=== PATIENT | male | born 1955 | race Caucasian/White ===

== ENCOUNTER 2023-01-08 11:05 | Outpatient (RCR) | payer OTHER, SELFPAY | END 2023-02-19 10:35 | disposition home or self-care (01) | PROVIDERS: PCP Physician Assistant; Visit Provider Physician Assistant | DX: M17.9 Osteoarthritis of knee, unspecified (principal); M25.562 Pain in left knee; M25.662 Stiffness of left knee, not elsewhere classified; Z74.09 Other reduced mobility; Z51.89 Encounter for other specified aftercare | CPT/HCPCS: 97161; 97535 ==

== ENCOUNTER 2023-01-20 08:56 | Day surgery (SDC) | payer OTHER, SELFPAY ==
[2023-01-20] VITALS (23 sets, daily range): BP systolic 97–154; BP diastolic 66–96; PULSE 54–99; RESP 16–18; TEMP 35.4–36.6; O2SAT 95–99; BMI 36.7
[2023-01-20] MEDS: ACETAMINOPHEN 500 MG TABLET 1000 MG PO ×3 (09:08→23:16)
[2023-01-20] MEDS: CELECOXIB 200 MG CAPSULE PO (09:08)
[2023-01-20] MEDS: OXYCODONE (CR) 10 MG TAB.ER.12H PO (09:08)
[2023-01-20] MEDS: LACTATED RINGERS 1000 ML 1,000 ML 100 ML IV (09:10)
[2023-01-20] MEDS: SODIUM CHLORIDE 0.9 % (FLUSH) 10 ML SYRINGE IVF (09:22)
[2023-01-20] MEDS: fentaNYL 100 MCG/2 ML inj IVP (10:49)
[2023-01-20] MEDS: MIDAZOLAM HCL 1 MG/ML inj IVP (10:49)
--- NOTE | 2023-01-20 10:57 | W.PM.NB ---
Nerve Block Nerve Block Time Seen by Provider: 10:53 Date Seen: 01/20/23 Type of block requested by surgeon for post-operative analgesia: adductor canal Side: left Time out performed: Yes Verification of patient name: Yes Verification of date of : Yes Site marking: site marked Name of person performing procedure: Gavin Continuous monitoring Was continuous monitoring of O2 sat, B/P, emc storage architect, recorded every 15 minutes?: Yes Procedure Checklist: sterile prep, needles and gloves Ultrasound guided. Images saved: Yes Medications given in 5ml increments after negative aspiration: Ropivicaine %: 0.5 mL: 20 Needle gauge: 20 Decadron (mg): 10 Precedex (mcg): 25 Patient tolerated procedure well: Yes Additional comments: Needle noted adjacent to nerve Block Charges Block Charge (with Pro Fee): Femoral Nerve Use of Ultrasound Machine for Block: Yes- US Guidance/pain block
--- NOTE | 2023-01-20 10:58 | P.NB_ITS ---
Nerve Block Nerve Block Time Seen by Provider: 10:53 Date Seen: 01/20/23 Type of block requested by surgeon for post-operative analgesia: geniculars Side: left Time out performed: Yes Verification of patient name: Yes Verification of date of : Yes Site marking: site marked Name of person performing procedure: Gavin Continuous monitoring Was continuous monitoring of O2 sat, B/P, [employer] plans intelligence officer chief, recorded every 15 minutes?: Yes Procedure Checklist: sterile prep, needles and gloves Medications given in 5ml increments after negative aspiration: Ropivicaine %: 0.5 mL: 9 Needle gauge: 25 Patient tolerated procedure well: Yes Block Charges Block Charge (with Pro Fee): Genicular Nerve Block Use of Ultrasound Machine for Block: No
--- NOTE | 2023-01-20 10:58 | W.ANESCHARGE ---
Anesthesia Charges Start Date/Time Anesthesia Start Date: 01/20/23 Anesthesia Start Time: 11:45 Stop Date/Time Anesthesia Stop Date: 01/20/23 Anesthesia Stop Time: 14:36
--- NOTE | 2023-01-20 11:08 | SUR.PREOP ---
TIME?OUT:?1048 PT/Aurora Jolly RN/Dr. Gavin MDA?VERIFICATION?OF?SURGICAL?SITE left knee,?PROCEDURE,?AND?CONSENT OBTAINED?PRIOR?TO?INVASIVE?PROCEDURE.
--- NOTE | 2023-01-20 13:30 | CRLHL7_ITS ---
For Patients: As a result of the Cures Act, medical imaging exams and procedure reports are released immediately into your electronic medical record. You may view this report before your referring provider. If you have questions, please contact your health care provider. Indication: Postoperative Technique: Two views Comparison: None Findings/Impression: The patient is status post left total knee replacement. No evidence of periprosthetic fracture. Alignment is near anatomic. Subcutaneous and intra-articular air consistent with recent surgery. Dictated by Ta Eugene MD @ 01/20/2023 3:42:39 PM (Electronically Signed)
--- NOTE | 2023-01-20 13:32 | P.ORPRC_ITS ---
Procedure Note Date of procedure: 01/20/23 Procedure: PREOPERATIVE DIAGNOSIS: Left knee osteoarthritis POSTOPERATIVE DIAGNOSIS: Left knee osteoarthritis NAME OF OPERATION: Left total knee arthroplasty SURGEON: Ravinder Hagan MD TRAFFIC COURT REFEREE: Shandra Hou PA-C ANESTHESIA: Spinal ESTIMATED BLOOD LOSS: 0 mL COMPLICATIONS: None SPECIMENS: None DRAINS: None PREOPERATIVE ANTIBIOTICS: Ancef 3 grams IMPLANTS: 1. J&J Attune # 9 posterior stabilized femur 2. # 8 fixed-bearing tibia, 14 mm x 50 mm cemented stem 3. # 9 posterior stabilized, 5 mm fixed-bearing polyethylene 4. 41 patella INDICATIONS: The patient is a 67-year-old with a longstanding history of severe, unrelenting left knee pain secondary to end-stage (grade IV) left knee osteoarthritis. Despite appropriate nonoperative management, including activity modification, anti-inflammatories, [id number] pain medication, bracing, physical therapy, and injections they continue to have pain and disability. Operative intervention was offered. The risks, benefits and expected outcomes were discussed in detail. These included but were not limited to: Infection, bleeding, injury to blood vessel or nerve, venous thromboembolism. All questions were answered to their satisfaction. Use of an insurance legal assistant was necessary throughout the case for patient positioning and safety, soft tissue retraction, and closure. A modifier 22 should be added to this case. The patient's weight of 123 kg with a BMI of 37 kg/meter squared made exposure difficult and more than doubled the time typically required to complete the case. PROCEDURE: Spinal anesthesia was administered. The patient was placed supine on the operating table. The insurance legal assistant made sure the patient was positioned appropriately. The lower extremity was prepped and draped in the usual sterile fashion. The limb was exsanguinated with the Carl[place] bandage. The pneumatic tourniquet was inflated to 300 mmHg. A standard anterior incision was made with the knee in flexion. Subcutaneous dissection was sharply taken through fascial layer #1. Full-thickness medial a nd lateral flaps were elevated. The insurance legal assistant retracted the soft tissues and protected them throughout the case. A standard medial parapatellar approach was made. The patella was everted. The infrapatellar fat pad was preserved. The menisci and cruciate ligaments were sharply d?brided. Marginal osteophytes were d?brided with the rongeur. The drill was used to penetrate the femoral canal. The canal was aspirated and irrigated with pulse lavage. The intramedullary femoral guide was placed for a 5-degree valgus cut, removing 12 mm off the distal femur. The saw was used to make the cut. Whitesides line and the trans epicondylar axis were marked. The femoral sizing guide was pinned onto the distal femur. Three degrees of external rotation nicely parallels the transepicondylar axis. Pins were placed for posterior referencing. The four-in-one cutting guide was pinned onto the distal femur. The anterior, posterior, and chamfer cuts were made. The insurance legal assistant protected the collateral ligaments. The box cutting guide was pinned. The box cuts were made. The boxed trial was placed and was an excellent fit. Drill holes for the lugs were made. Attention was then turned to the proximal tibia. The extramedullary tibial guide was placed for a neutral varus/valgus cut with 5 degrees of posterior slope, removing 2 mm based off the medial tibial surface. The insurance legal assistant protect ed the collateral ligaments and the neurovascular bundle. The saw was used to make the cut. Trial components were placed. The knee was nicely balanced in both flexion and extension. The trial components were removed. The tray was placed in appropriate rotation, parallel to our tibial cutting pins. It was pinned by the insurance legal assistant and the drill and the punch were used. The tray was removed. The punch was used again. We placed a bone plug in the femoral canal. Attention was then turned to the patella. [place] patellar thickness was 28 mm. The lobster claw resection guide was used with the 9.5 mm wes. The saw was used to make the cut. Drill holes were made by the insurance legal assistant. The trial was placed and was an excellent fit. Cancellous surfaces were irrigated with pulse lavage and thoroughly dried by the insurance legal assistant. We cemented the tibial component, then the femoral component. We impacted the 5 mm polyethylene onto the tibial tray. The knee was brought into full extension. We then cemented the patellar component. Excessive cement was removed. The cement was allowed to harden. The knee was taken through a range of motion and was found to be nicely balanced in both flexion and extension. The patella tracks centrally. The insurance legal assistant did a three minute dilute Betadine solution soak. The insurance legal assistant irrigated the wound with 3 liters of normal saline via pulse lavage. The insurance legal assistant reapproximated the extensor mechanism with #1 Vicryl in an interrupted [id number] fashion. The insurance legal assistant then ran the extensor mechanism with a #1 PDO Stratafix. The insurance legal assistant closed the subcutaneous tissues with a 3-0 Stratafix and the skin with a running 3-0 Stratafix in a subcuticular fashion. Glue was used to seal the skin. The insurance legal assistant placed a dry dressing, ASHLEY stocki ng, and Polar Care. Sponge and needle counts were correct x2. The patient tolerated the procedure well. There were no apparent complications. They were carefully transferred to the hospital bed and taken to the postanesthesia care unit in satisfactory condition. PLAN: The patient will be mobilized with physical therapy. Aspirin will be used for DVT prophylaxis. They will be discharged to home once medically appropriate.
--- NOTE | 2023-01-20 13:44 | W.ANESCHARGE ---
Anesthesia Charges Start Date/Time Anesthesia Start Date: 01/20/23 Anesthesia Start Time: 11:45 Stop Date/Time Anesthesia Stop Date: 01/20/23 Anesthesia Stop Time: 14:36
[2023-01-20] MEDS: LACTATED RINGERS 1000 ML 1,000 ML 75 ML IV (15:47)
--- NOTE | 2023-01-20 18:51 | PC.NURSE ---
Adolph came up to the floor at 1515 after a LTK, post op VS until 2114 next due at 191. VS on RA, his temp has been steady at 96.0. He had an episode of shivering after he got up to the chair but stated I am not cold Applied 2 blankets and shivering subsided. Continue to monitor temp. Ate 100% of dinner, with no nausea. No pain reported, he states it is stiff IV ABX infusing now, LR running at 75. Cyrocuff to L knee, TEDS in place, dressing is CDI with no drainage. He had his R knee done 5 years ago. Significant other and some other family at bedside. He still works and came from home. He is very motivated to recover, he would like to go for a walk this evening with his nurse.
--- NOTE | 2023-01-20 20:17 | P.IMCN_ITS ---
Date of Consult Patient: Velvet Patient Consult date: 01/20/23 Requesting Physician: Orthopedics Primary Care Provider: Garth Sultana MD Consult Narrative Reason for consult: Postop management of HTN and hypothyroidism Narrative: Adolph Jensen is a 67 year old man with end-stage left gonarthrosis undergoes elective left total knee arthroplasty successfully today without any apparent complications. Review of Systems Status of ROS: Reports: 10 or more systems reviewed and unremarkable except as noted in History and below PFSH PFSH Medical History (Updated 01/20/23 @ 20:21 by Jose Cole MD) Former smoker, stopped smoking many years ago ?Z87.891 - Personal history of nicotine dependence (ICD-10) Adenomatous colon polyp ?D12.6 - Benign neoplasm of colon, unspecified (ICD-10) Vitamin D deficiency ?E55.9 - Vitamin D deficiency, unspecified (ICD-10) Sensorineural hearing loss (SNHL), bilateral ?H90.3 - Sensorineural hearing loss, bilateral (ICD-10) Graves disease ?E05.00 - Thyrotoxicosis with diffuse goiter without thyrotoxic crisis or storm (ICD-10) Hypothyroidism (acquired) ?E03.9 - Hypothyroidism, unspecified (ICD-10) Arthritis ?M19.90 - Unspecified osteoarthritis, unspecified site (ICD-10) Hypertension ?I10 - Essential (primary) hypertension (ICD-10) Hypothyroid ?E03.9 - Hypothyroidism, unspecified (ICD-10) Surgical History (Updated 01/20/23 @ 20:13 by Jose Cole MD) H/O colonoscopy with polypectomy ?Z98.890 - Other specified postprocedural states (ICD-10) ?Z86.010 - Personal history of colonic polyps (ICD-10) History of umbilical hernia repair ?Z98.890 - Other specified postprocedural states (ICD-10) ?Z87.19 - Personal history of other diseases of the digestive system (ICD-10) Hx of vasectomy ?Z98.52 - Vasectomy status (ICD-10) Hx of appendectomy ?Z90.49 - Acquired absence of other specified parts of digestive tract (ICD- 10) S/P right knee arthroscopy ?Z98.890 - Other specified postprocedural states (ICD-10) H/O hernia repair ?Z98.890 - Other specified postprocedural states (ICD-10) ?Z87.19 - Personal history of other diseases of the digestive system (ICD-10) Status post right knee replacement (03/16/18) ?Z96.651 - Presence of right artificial knee joint (ICD-10) Family History (Updated 01/20/23 @ 20:16 by Jose Cole MD) Father Lung cancer High blood pressure Coronary artery disease CHF (congestive heart failure) Hx of CABG Mother High blood pressure Brother High blood pressure Sister High blood pressure Social History (Updated 01/20/23 @ 20:14 by Jose Cole MD) Narrative: . Lives with . Continues to work in the [employer] in [place], [place]. Smoking Status: Former smoker What tobacco products do you use: cigarettes Years smoked: 15 Smoking quit date/years: <= 15 years ago and cigars Do you use any of these nicotine containing products: None How often do you have a drink containing alcohol: monthly or less Alcohol type: beer How many standard drinks containing alcohol do you have on a typical day: 1 or 2 How often do you have six or more drinks on one occasion: Never AUDIT-C Alcohol total score: 1 Non-prescribed substance use: denies use Caffeine: Yes (coffee, 10 cups/day) Meds Home Medications and Allergies Home Medications Medication Instructions Recorded Confirmed Type levothyroxine 125 mcg tablet 125 mcg PO DAILY 11/21/22 01/20/23 History lisinopril 20 mg tablet 20 mg PO DAILY 11/21/22 01/20/23 History Allergies Allergy/AdvReac Type Severity Reaction Status Date / Time No Known Drug Allergies Allergy Verified 01/20/23 09:09 Exam Narrative: Exam Narrative: Examine him in the hospital room postoperatively. He is laying in a semi recumbent position. No acute distress. Appears comfortable. Vision and hearing are grossly adequate. Alert, oriented to self, place, time, situation. Friendly, articulate, cooperative. Mood and affect are congruent. Cranial nerves 3-12 are grossly normal save his chronic decreased hearing. Neck is supple. Midline trachea. No head and neck lymphadenopathy. Lungs are clear to auscultation without wheezing, rhonchi, or rales. Heart tones with regular rhythm, normal S1-S2, without murmur, gallop, or rub. Abdomen with active bowel sounds, soft, nontender. Already moves left lower extremity + obviously moving the right lower extremity volitionally. Const: Vital Signs, click to edit/add: Vital Signs - 24 hr 01/20/23 09:23 01/20/23 10:49 01/20/23 11:00 Temperature 97.6 F Pulse Rate 74 75 70 Pulse Rate [Pulse Oximeter] Respiratory Rate 16 16 16 Blood Pressure 132/93 H 137/85 132/79 Blood Pressure [Ri ght Arm] Pulse Oximetry 96 98 96 Oxygen Delivery Me thod Room Air Nasal Cannula Nasal Cannula Oxygen Flow Rate 2 2 01/20/23 14:32 01/20/23 14:35 01/20/23 14:40 Temperature 97.2 F L Pulse Rate 62 61 60 Pulse Rate [Pulse Oximeter] Respiratory Rate 16 16 16 Blood Pressure 102/69 98/75 100/69 Blood Pressure [Ri ght Arm] Pulse Oximetry 99 99 98 Oxygen Delivery Il thod Room Air Oxygen Flow Rate 01/20/23 14:45 01/20/23 14:50 01/20/23 14:55 Temperature Pulse Rate 61 58 L 58 L Pulse Rate [Pulse Oximeter] Respiratory Rate 16 16 16 Blood Pressure 100/66 97/66 103/68 Blood Pressure [Ri ght Arm] Pulse Oximetry 98 97 97 Oxygen Delivery Me thod Room Air Oxygen Flow Rate 01/20/23 15:00 01/20/23 15:05 01/20/23 15:15 Temperature 97 F L Pulse Rate 60 60 Pulse Rate [Pulse Oximeter] Respiratory Rate 16 16 16 Blood Pressure 104/73 112/76 Blood Pressure [Ri ght Arm] Pulse Oximetry 97 97 Oxygen Delivery Me thod Room Air Room Air Oxygen Flow Rate 01/20/23 15:15 01/20/23 15:15 01/20/23 15:30 Temperature 96.0 F L 95.9 F L 95.7 F L Pulse Rate 54 L 54 L Pulse Rate [Pulse Oximeter] 58 L Respiratory Rate 16 16 16 Blood Pressure Blood Pressure [Ri ght Arm] 111/77 111/77 127/91 H Pulse Oximetry 98 Oxygen Delivery Me thod Room Air Room Air Room Air Oxygen Flow Rate 01/20/23 15:45 01/20/23 16:00 01/20/23 16:15 Temperature 96.0 F L 96.0 F L 96.2 F L Pulse Rate Pulse Rate [Pulse Oximeter] 60 60 56 L Respiratory Rate 16 18 18 Blood Pressure Blood Pressure [Ri ght Arm] 129/92 H 125/85 122/92 H Pulse Oximetry 98 97 97 Oxygen Delivery Me thod Room Air Room Air Room Air Oxygen Flow Rate 01/20/23 16:45 01/20/23 17:15 01/20/23 18:15 Temperature 96.3 F L 96.3 F L 96.0 F L Pulse Rate Pulse Rate [Pulse Oximeter] 60 63 76 Respiratory Rate 18 18 18 Blood Pressure Blood Pressure [Ri ght Arm] 128/91 H 143/96 H 122/80 Pulse Oximetry 98 97 97 Oxygen Delivery Me thod Room Air Room Air Room Air Oxygen Flow Rate 01/20/23 19:15 Temperature 97 F L Pulse Rate Pulse Rate [Pulse Oximeter] 84 Respiratory Rate 18 Blood Pressure Blood Pressure [Ri ght Arm] 147/71 H Pulse Oximetry 98 Oxygen Delivery Me thod Room Air Oxygen Flow Rate Assessment and Plan Assessment and plan (1) Osteoarthritis of left knee: Problem comment: [id number] medial compartment Status: Acute (2) Status post left knee replacement: Status: Acute (3) Hypertension: Status: Acute (4) Hypothyroidism (acquired): Problem comment: Status post radioactive iodine I-131 thyroid ablation ablation due to Graves dis ease1996 Status: Acute Plan 1. Reviewed impression with patient and . Answered their questions. 2. Will follow with Orthopedic surgery while patient is in hospital. 3. Hold antihypertensive medications while in hospital. 4. Continue with his levothyroxine while in hospital. 5. Agree with perioperative antibiotic prophylaxis. 6. Agree with postoperative venous thromboembolism prophylaxis efforts. 7. Have completed the hospitalist portion of the discharge for the patient from the hospital. 8. Patient agreeable to above stated plans and recommendations.
[2023-01-20] MEDS: SENNOSIDES 1 TAB TABLET 2 TAB PO (20:31)
[2023-01-20] MEDS: ASPIRIN 81 MG TABLET EC PO (20:31)
[2023-01-21 03:00] VITALS: BP 113/60; PULSE 96; RESP 18; TEMP 36.6; O2SAT 96
[2023-01-21] MEDS: ACETAMINOPHEN 500 MG TABLET 1000 MG PO ×2 (05:41→12:20)
--- NOTE | 2023-01-21 06:29 | PC.NURSE ---
Shift note: Pt was pleasant, cooperate with care and treatment. Ambulate with A1, walker and GB. Pt passed gas at least 3x tonight but no BM. Bowel sound active. Tolerated regular diet very well without any complication. Rated pain level at 0 when at rest, pain increase only with activity, no PRN medication requested. Pt has good amount of dark jameson color urine tonight as per chart. Saline lock and vitally stable. Dressing appeared clean and dry.
[2023-01-21 06:57] LABS: Hemoglobin* 12.3 gm/dL (13.5-17.5); Immature Granulocytes Pct Auto 0.3 %; Lymphocytes Percent Auto 8.1 % (20-44); Mean Corpuscular HGB Conc 33 gm/dL (32-36); Mean Corpuscular Hemoglobin 29 pg (26-34); Mean Corpuscular Volume 87 fL (80-100); Monocytes Percent Auto 7.2 % (0.0-11.0); Neutrophils Percent Auto 84.4 % (42.0-72.0); Platelet Count* 206 K/uL (140-440); RDW Coefficient of Variation % 13.1 % (11.5-15.5); Red Blood Count 4.25 m/uL (4.30-5.90); White Blood Count* 11.04 K/uL (4.50-11.00)
[2023-01-21 07:15] LABS: INR 1.05 (0.91-1.10); Prothrombin Time 14.3 Seconds
[2023-01-21 07:18] LABS: Slide Review Reflex No
[2023-01-21 07:23] LABS: Sodium* 135 mmol/L (135-149)
[2023-01-21 07:24] LABS: Potassium* 3.8 mmol/L (3.6-5.1)
[2023-01-21 07:26] LABS: Creatinine* 0.8 mg/dL (0.5-1.5); Est. Creatinine Clearance* 78.68; Estimated Glomerular Filt Rate 97 ml/min
[2023-01-21 07:27] LABS: Blood Urea Nitrogen* 18 mg/dL (7-30)
--- NOTE | 2023-01-21 07:54 | PM.ORPN ---
Subjective Subjective Time Seen by Provider: 07:15 Date Seen: 01/21/23 Principal diagnosis: Status post left knee replacement Interval history: Adolph is doing well this morning. He has ambulated into the hallway. He did not get much sleep last night. He is feeling well. He is discharging to home today. Ortho Exam Narrative Exam Narrative: Alert and oriented x3. Patient is in no acute distress. Converses without labored breathing. Hearing is grossly intact. Ambulates with a walker. Examination of the left knee shows mild soft tissue edema. No erythema or warmth or sign of infection. Mild effusion. Quad strength 5/5. CMS intact left lower extremity. Bilateral calves are soft and nontender. Const Vital Signs, click to edit/add: Vital Signs - 24 hr 01/20/23 09:23 01/20/23 10:49 01/20/23 11:00 Temperature 97.6 F Pulse Rate 74 75 70 Pulse Rate [Pulse Oximeter] Respiratory Rate 16 16 16 Blood Pressure 132/93 H 137/85 132/79 Blood Pressure [Right Arm] Pulse Oximetry 96 98 96 Oxygen Delivery Method Room Air Nasal Cannula Nasal Cannula Oxygen Flow Rate 2 2 01/20/23 14:32 01/20/23 14:35 01/20/23 14:40 Temperature 97.2 F L Pulse Rate 62 61 60 Pulse Rate [Pulse Oximeter] Respiratory Rate 16 16 16 Blood Pressure 102/69 98/75 100/69 Blood Pressure [Right Arm] Pulse Oximetry 99 99 98 Oxygen Delivery Method Room Air Oxygen Flow Rate 01/20/23 14:45 01/20/23 14:50 01/20/23 14:55 Temperature Pulse Rate 61 58 L 58 L Pulse Rate [Pulse Oximeter] Respiratory Rate 16 16 16 Blood Pressure 100/66 97/66 103/68 Blood Pressure [Right Arm] Pulse Oximetry 98 97 97 Oxygen Delivery Method Room Air Oxygen Flow Rate 01/20/23 15:00 01/20/23 15:05 01/20/23 15:15 Temperature 97 F L Pulse Rate 60 60 Pulse Rate [Pulse Oximeter] Respiratory Rate 16 16 16 Blood Pressure 104/73 112/76 Blood Pressure [Right Arm] Pulse Oximetry 97 97 Oxygen Delivery Method Room Air Room Air Oxygen Flow Rate 01/20/23 15:15 01/20/23 15:15 01/20/23 15:30 Temperature 96.0 F L 95.9 F L 95.7 F L Pulse Rate 54 L 54 L Pulse Rate [Pulse Oximeter] 58 L Respiratory Rate 16 16 16 Blood Pressure Blood Pressure [Right Arm] 111/77 111/77 127/91 H Pulse Oximetry 98 Oxygen Delivery Method Room Air Room Air Room Air Oxygen Flow Rate 01/20/23 15:45 01/20/23 16:00 01/20/23 16:15 Temperature 96.0 F L 96.0 F L 96.2 F L Pulse Rate Pulse Rate [Pulse Oximeter] 60 60 56 L Respiratory Rate 16 18 18 Blood Pressure Blood Pressure [Right Arm] 129/92 H 125/85 122/92 H Pulse Oximetry 98 97 97 Oxygen Delivery Method Room Air Room Air Room Air Oxygen Flow Rate 01/20/23 16:45 01/20/23 17:15 01/20/23 18:15 Temperature 96.3 F L 96.3 F L 96.0 F L Pulse Rate Pulse Rate [Pulse Oximeter] 60 63 76 Respiratory Rate 18 18 18 Blood Pressure Blood Pressure [Right Arm] 128/91 H 143/96 H 122/80 Pulse Oximetry 98 97 97 Oxygen Delivery Method Room Air Room Air Room Air Oxygen Flow Rate 01/20/23 19:15 01/20/23 20:15 01/20/23 21:15 Temperature 97 F L 97.4 F L 97.4 F L Pulse Rate Pulse Rate [Pulse Oximeter] 84 99 95 Respiratory Rate 18 18 18 Blood Pressure Blood Pressure [Right Arm] 147/71 H 154/95 H 152/93 H Pulse Oximetry 98 95 96 Oxygen Delivery Method Room Air Room Air Room Air Oxygen Flow Rate 01/20/23 23:00 01/20/23 23:00 01/21/23 03:00 Temperature 97.8 F 97.8 F Pulse Rate Pulse Rate [Pulse Oximeter] 94 96 Respiratory Rate 18 18 Blood Pressure Blood Pressure [Right Arm] 143/90 H 113/60 Pulse Oximetry 95 95 96 Oxygen Delivery Method Room Air Room Air Oxygen Flow Rate Assessment and Plan Assessment and plan (1) Status post left knee replacement: Problem details: 01/20/2023 Status: Acute Assessment and Plan: Plan for discharge is today to home if they meet discharge criteria. DVT prophylaxis includes aspirin 81 mg twice daily x1 month, Benjy stockings x1 month may remove for 1 hr per day, frequent ambulation Remove dressing in 1 week. Observe wound and phone Orthopedics with any questions or concerns Return to clinic in 1 week for a wound check Return to clinic in 6 weeks with surgeon Minimize narcotic use. Wean off and discontinue soon as possible. Activities as tolerated. No strenuous activity. Outpatient physical therapy as scheduled. Ice and elevate the operative extremity. No restriction on ice. (2) Hypertension: Status: Acute (3) Hypothyroidism (acquired): Problem details: Status post radioactive iodine I-131 thyroid ablation ablation due to Graves disease, 1996 Status: Acute
[2023-01-21] MEDS: LEVOTHYROXINE 125 MCG TABLET PO (07:57)
[2023-01-21 08:07] VITALS: BP 136/75; PULSE 79; RESP 16; TEMP 36.6; O2SAT 97
[2023-01-21] MEDS: ASPIRIN 81 MG TABLET EC PO (08:58)
[2023-01-21] MEDS: SENNOSIDES 1 TAB TABLET 2 TAB PO (08:58)
--- NOTE | 2023-01-21 12:05 | PC.NURSE ---
Addendum entered by Dulce Maria Arce RN 01/21/23 15:28: Pt discharge summary was signed and reviewed as well as patient belongings paperwork but inadvertently took it home with them. Original Note: VSS on RA, Cyro cuff to L knee, dressing CDI w/ minor swelling. No reports of pain this shift. Scheduled tylenol given @ 1215. Pt is waiting to discharge home with , discharge instructions will be provided and reviewed with them both. Medications sent to [facility] in [place].
== END 2023-01-21 13:15 | disposition home or self-care (01) ==
LOC: OR 08:57 → MEDSURG 09:03
PROVIDERS: PCP Family Medicine; Visit Provider Orthopaedic Surgery
PROC: (CPT 27447; principal; 2023-01-20 10:45)
DX: M17.12 Unilateral primary osteoarthritis, left knee (principal); G89.18 Other acute postprocedural pain; I10 Essential (primary) hypertension; E03.9 Hypothyroidism, unspecified
CPT/HCPCS: 27447; 01402; 36415; 64447; 64454; 73560; 76942; 82565; 84132; 84295; 84520; 85025; 85610; 97110; 97116; 97161; 97165; 97535; A9270; C1776; J0690; J1100; J2250; J2704; J2795; J3010; J7120